=== PATIENT | female | born 1975 | race Caucasian/White ===

== ENCOUNTER → 2018-05-28 | Outpatient (REF) ==
--- NOTE | 2018-05-28 20:57 | REP ---
Lumbar spine series: Three views limited study. History: Degenerative disc disease. No comparison lumbar spine imaging. Findings: Lumbar vertebral body heights are preserved. Alignment is normal. Pedicles and posterior elements are intact. There is no evidence of spondylolysis or spondylolisthesis. Psoas margins are symmetric. Sacrum and SI joints are intact. 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 This is a chronic finding. Minimal disc narrowing is seen ay L4-5. Discogenic spurring is noted at T12-L1. Impression: Mild degenerative disc changes most pronounced at L3-4 where there is a L4 limbus vertebra. Electronically Signed by Neel Jeffries MD 05/28/2018 08:48 P
== END ==
LOC: M SMT 13:03
PROVIDERS: ATTEND Internal Medicine
DX: M51.36 Other intervertebral disc degeneration, lumbar region (principal)

== ENCOUNTER 2019-04-02 14:29 | Emergency (ER) | payer MEDICARE, MEDICAID ==
[2019-04-02 15:12] LABS: HEMATOCRIT 38.3 % (36.0-47.0); HEMOGLOBIN 12.2 g/dl (12.0-15.5); MEAN CORPUSCULAR HEMOGLOBIN 23.5 pg (27.0-33.0); MEAN CORPUSCULAR HGB CONC 31.9 g/dl (32.0-36.5); MEAN CORPUSCULAR VOLUME 73.7 fl (80.0-96.0); PLATELET COUNT, AUTOMATED 569 10^3/uL (150-450); WHITE BLOOD COUNT 14.1 10^3/uL (4.0-10.0)
[2019-04-02] MEDS ORDERED: LORazepam 2 MG TAB PO STA (15:17)
[2019-04-02 15:38] LABS: HCG, SERUM QUALITATIVE NEGATIVE (NEGATIVE)
[2019-04-02] MEDS ORDERED: LORazepam 2 MG/ML VIAL (J2060) IM STA (15:39)
[2019-04-02] MEDS ORDERED: diphenhydrAMINE INJ 50MG/ML VIAL (J1200) IM STA (15:39)
[2019-04-02 15:43] LABS: ACETAMINOPHEN LEVEL < 2.0 UG/ML (10.0-30.0); ALBUMIN 4.5 GM/DL (3.2-5.2); ALT/SGPT 20 U/L (12-78); BILIRUBIN,DIRECT 0.2 MG/DL (0.0-0.2); BILIRUBIN,TOTAL 0.8 MG/DL (0.2-1.0); BLOOD UREA NITROGEN 27 MG/DL (7-18); CALCIUM LEVEL 9.1 MG/DL (8.5-10.1); CARBON DIOXIDE LEVEL 24 MEQ/L (21-32); CHLORIDE LEVEL 104 MEQ/L (98-107); CREATININE FOR GFR 1.02 MG/DL (0.55-1.30); ETHYL ALCOHOL (ETHANOL) < 0.003 % (0.000-0.010); GLOMERULAR FILTRATION RATE > 60.0 (>58); GLUCOSE, FASTING 125 MG/DL (70-100); POTASSIUM SERUM 4.2 MEQ/L (3.5-5.1); SALICYLATE LEVEL < 1.7 MG/DL (5.0-30.0); SODIUM LEVEL 136 MEQ/L (136-145); TOTAL PROTEIN 7.7 GM/DL (6.4-8.2)
[2019-04-02] MEDS ORDERED: ADDE30TA PO (16:09)
[2019-04-02] MEDS ORDERED: ACET1TAB55 PO (16:09)
[2019-04-02] MEDS ORDERED: HYDR50CA2 PO (16:09)
[2019-04-02] MEDS ORDERED: LORA1TAB4 PO (16:09)
[2019-04-02] MEDS ORDERED: GABA600T4 PO (16:09)
[2019-04-02] MEDS ORDERED: OLANZapine INTRAMUSCULAR 10 MG VIAL (S0166) IM ONE ×2 (17:30→21:00)
[2019-04-02 21:54] LABS: AMPHETAMINES LEVEL URINE POSITIVE (NEGATIVE); BARBITURATES URINE NEGATIVE (NEGATIVE); BENZODIAZEPINES URINE NEGATIVE (NEGATIVE); CANNABINOIDS URINE NEGATIVE (NEGATIVE); COCAINE METABOLITE URINE NEGATIVE (NEGATIVE); METHADONE URINE NEGATIVE (NEGATIVE); OPIATES URINE NEGATIVE (NEGATIVE); PHENCYCLIDINE URINE NEGATIVE (NEGATIVE)
[2019-04-03 08:40] VITALS: BP 102/61
--- NOTE | 2019-04-03 23:04 | ECGEPIP ---
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
== END 2019-04-03 08:50 | disposition short-term general hospital (02) ==
LOC: M ED 14:29
DX: F29 Unspecified psychosis not due to a substance or known physiological condition (principal); R45.851 Suicidal ideations; R00.0 Tachycardia, unspecified; F41.9 Anxiety disorder, unspecified; F43.10 Post-traumatic stress disorder, unspecified; F90.9 Attention-deficit hyperactivity disorder, unspecified type; Z88.2 Allergy status to sulfonamides; Z79.899 Other long term (current) drug therapy
CPT/HCPCS: 36415; 80048; 80076; 80307; 84443; 84703; 85027; 93005; 96372; 99285; G0480; J1200; J2060